=== PATIENT | female | born 1955 | race African-American/Black ===

== ENCOUNTER 2018-10-25 21:07 | Emergency (ER) | payer BC, OTHER ==
[~2018-10-25] VITALS: Ht 165.1 cm; Wt 102.0 kg
[2018-10-25] MEDS ORDERED: MORPHINE SULFATE 10 MG/ML CPJ IM ONE (23:45)
[2018-10-25] MEDS ORDERED: KETOROLAC 60MG/2ML VIAL IM ONE (23:45)
[2018-10-26 01:33] VITALS: BP 165/71
== END 2018-10-26 01:35 | disposition home or self-care (01) ==
LOC: ER 21:07
DX: S39.012A Strain of muscle, fascia and tendon of lower back, initial encounter (principal); M62.838 Other muscle spasm; I11.0 Hypertensive heart disease with heart failure; I50.9 Heart failure, unspecified; Z87.01 Personal history of pneumonia (recurrent); Z98.890 Other specified postprocedural states; Z88.8 Allergy status to other drugs, medicaments and biological substances; V49.09XA Driver injured in collision with other motor vehicles in nontraffic accident, initial encounter; Y93.89 Activity, other specified; Y92.89 Other specified places as the place of occurrence of the external cause; Y99.8 Other external cause status
CPT/HCPCS: 96372; 99283; J1885; J2270; Z7610